=== PATIENT | female | born 1995 | race Caucasian/White ===

== ENCOUNTER 2019-10-03 13:23 | Emergency (ER) | payer OTHER ==
[~2019-10-03] VITALS: Ht 152.4 cm; Wt 73.9 kg
[2019-10-03 13:42] VITALS: Ht 152.4 cm; Wt 73.9 kg
[2019-10-03 17:13] VITALS: BP 143/72
== END 2019-10-03 17:13 | disposition home or self-care (01) ==
LOC: ED 13:23
DX: J06.9 Acute upper respiratory infection, unspecified (principal)